=== PATIENT | female | born 1955 | race Caucasian/White ===

== ENCOUNTER → 2023-06-13 | Outpatient (REF) | payer MEDICARE, OTHER | LOC: M LAB REF 10:13 | PROVIDERS: ATTEND Nurse Practitioner Family | DX: R30.0 Dysuria (principal) ==

== ENCOUNTER → 2024-02-18 | Outpatient (REF) | payer MEDICARE, OTHER | LOC: M LAB REF 09:57 | PROVIDERS: ATTEND Registered Nurse | DX: N39.0 Urinary tract infection, site not specified (principal) ==